=== PATIENT | male | born 1985 | race Hispanic/Latino ===

== ENCOUNTER 2018-12-27 19:57 | Emergency (ER) | payer MEDICAID ==
[~2018-12-27 19:57] MED LIST: SULF-168 PO
[2018-12-27] MEDS ORDERED: LIDOCAINE HCL 1% 20 ML VIAL ONE (21:10)
[2018-12-27] MEDS ORDERED: TETANUS/DIPHTHERIA TOXOID [ADULT] 0.5 ML VIAL IM ONE (21:10)
[2018-12-27] MEDS ORDERED: OCTYL 2-CYANOACRYLATE 1 EACH TP ONE (21:31)
== END 2018-12-27 21:50 | disposition home or self-care (01) ==
LOC: EDH 19:57
DX: S61.210A Laceration without foreign body of right index finger without damage to nail, initial encounter (principal); S61.212A Laceration without foreign body of right middle finger without damage to nail, initial encounter; I10 Essential (primary) hypertension; F41.9 Anxiety disorder, unspecified; Z72.0 Tobacco use; Z79.899 Other long term (current) drug therapy; W26.8XXA Contact with other sharp object(s), not elsewhere classified, initial encounter; Y93.89 Activity, other specified; Y92.89 Other specified places as the place of occurrence of the external cause; Y99.8 Other external cause status
CPT/HCPCS: 12042; 73130; 90471; 90714

== ENCOUNTER 2021-03-16 19:43 | Emergency (ER) | payer MEDICAID ==
[~2021-03-16] VITALS: Ht 167.6 cm; Wt 125.2 kg
[2021-03-16] MEDS ORDERED: IBUPROFEN 400 MG TABLET ONE (19:50)
[2021-03-16] MEDS ORDERED: HYDROCODONE/ACETAMINOPHEN 10/325 MG TAB PO ONE (21:30)
[2021-03-16] MEDS ORDERED: CEFAZOLIN SODIUM 1 GM VIAL IM SCH (22:00)
[2021-03-16] MEDS ORDERED: ACET1TAB25 PO (22:19)
[2021-03-16] MEDS ORDERED: IBUP-2070 PO (22:19)
[2021-03-16 22:34] VITALS: BP 135/69
[2021-03-16] MEDS ORDERED: [UNRECOGNIZED DRUG - CODE] MC (22:40)
[2021-03-22] MEDS ORDERED: CLIN-141 PO (13:58)
== END 2021-03-16 22:45 | disposition home or self-care (01) ==
LOC: EDH 19:43
DX: S90.01XA Contusion of right ankle, initial encounter (principal); S90.31XA Contusion of right foot, initial encounter; I10 Essential (primary) hypertension; Z79.1 Long term (current) use of non-steroidal anti-inflammatories (NSAID); X58.XXXA Exposure to other specified factors, initial encounter; Y93.89 Activity, other specified; Y92.89 Other specified places as the place of occurrence of the external cause; Y99.8 Other external cause status
CPT/HCPCS: 29515; 73610; 73630; 96372; 99284; J0690

== ENCOUNTER 2023-01-11 11:11 | Emergency (ER) | payer MEDICAID, OTHER ==
[~2023-01-11] VITALS: Ht 167.6 cm; Wt 125.6 kg
[~2023-01-11 11:11] MED LIST changes: +ACET-2079 PO; +CLIN-141 PO; +IBUP-2070 PO; +[UNRECOGNIZED DRUG - CODE] MC
[2023-01-11 11:24] VITALS: BP 156/98; PULSE 51; RESP 18; O2SAT 99
[2023-01-11] MEDS ORDERED: KETOROLAC 60 MG VIAL (30MG/ML) IM ONE (12:00)
[2023-01-11 12:14] LABS: BASOPHILS # (AUTO) 0.06 K/uL (0.00-0.20); BASOPHILS % (AUTO) 0.5 % (0.0-5.0); EOSINOPHILS # (AUTO) 0.53 K/uL (0.00-0.70); EOSINOPHILS % (AUTO) 4.8 % (0.0-8.0); HEMATOCRIT 47.3 % (42-54); IMMATURE GRANULOCYTE ABSOLUTE 0.02 K/uL (0-1); LYMPHOCYTES # (AUTO) 2.5 K/uL (1.0-4.8); LYMPHOCYTES % (AUTO) 22.1 % (21.0-51.0); MEAN CORPUSCULAR HEMOGLOBIN 30.4 pg (27.0-33.0); MEAN CORPUSCULAR HGB CONC 33.2 g/dL (32.0-36.0); MEAN CORPUSCULAR VOLUME 91.5 fL (79-99); MONOCYTES # (AUTO) 0.7 K/uL (0.1-1.0); NEUTROPHILS # (AUTO) 7.4 K/uL (1.8-7.7); NEUTROPHILS % (AUTO) 66.4 % (40.0-77.0); PLATELET COUNT (AUTO) 213 K/uL (130-400); RED BLOOD CELL COUNT(AUTO) 5.17 MIL/uL (4.50-6.20); RED CELL DISTRIBUTION WIDTH 13.4 % (11.0-15.5); WHITE BLOOD COUNT (AUTO) 11.1 K/uL (4.8-10.8)
[2023-01-11 12:17] LABS: POTASSIUM 3.9 mmol/L (3.5-5.1)
[2023-01-11 12:22] LABS: BILIRUBIN,TOTAL 0.4 mg/dL (0.2-1.0); TOTAL PROTEIN, SERUM 7.6 g/dL (6.0-8.3); URIC ACID 6.3 mg/dL (2.6-7.2)
[2023-01-11] MEDS ORDERED: CEPH500B PO (13:20)
[2023-01-11] MEDS ORDERED: CEFTRIAXONE 1G VIAL IM ONE (13:30)
== END 2023-01-11 13:53 | disposition home or self-care (01) ==
LOC: EDH 11:11
DX: L03.116 Cellulitis of left lower limb (principal); M79.672 Pain in left foot; F41.9 Anxiety disorder, unspecified; E11.9 Type 2 diabetes mellitus without complications; E78.00 Pure hypercholesterolemia, unspecified; I10 Essential (primary) hypertension
CPT/HCPCS: 99284; 84550; 80053; 85025; 85378; 85651; 36415; 73630; 96372 ×2; J0696; J1885

== ENCOUNTER → 2023-01-12 | Outpatient (CLI) | payer MEDICAID ==
[~2023-01-12] MED LIST changes: +CEPH500B PO
[2023-01-12 16:17] LABS: BASOPHILS # (AUTO) 0.06 K/uL (0.00-0.20); BASOPHILS % (AUTO) 0.5 % (0.0-5.0); EOSINOPHILS # (AUTO) 0.74 K/uL (0.00-0.70); EOSINOPHILS % (AUTO) 6.7 % (0.0-8.0); HEMATOCRIT 45.8 % (42-54); IMMATURE GRANULOCYTE ABSOLUTE 0.03 K/uL (0-1); LYMPHOCYTES # (AUTO) 2.8 K/uL (1.0-4.8); LYMPHOCYTES % (AUTO) 25.3 % (21.0-51.0); MEAN CORPUSCULAR HGB CONC 32.3 g/dL (32.0-36.0); MEAN CORPUSCULAR VOLUME 92.9 fL (79-99); MONOCYTES # (AUTO) 0.8 K/uL (0.1-1.0); NEUTROPHILS # (AUTO) 6.7 K/uL (1.8-7.7); NEUTROPHILS % (AUTO) 60.2 % (40.0-77.0); PLATELET COUNT (AUTO) 217 K/uL (130-400); RED BLOOD CELL COUNT(AUTO) 4.93 MIL/uL (4.50-6.20); RED CELL DISTRIBUTION WIDTH 13.4 % (11.0-15.5); WHITE BLOOD COUNT (AUTO) 11.1 K/uL (4.8-10.8)
[2023-01-12 16:54] LABS: ALBUMIN 3.7 g/dL (3.5-5.0); BILIRUBIN,TOTAL 0.3 mg/dL (0.2-1.0); POTASSIUM 3.5 mmol/L (3.5-5.1); T4 (THYROXINE) 8.2 ug/dL (4.7-13.3); THYROID STIMULATING HORMONE 2.54 uIU/mL (0.36-3.74); TOTAL PROTEIN, SERUM 7.2 g/dL (6.0-8.3)
== END | disposition home or self-care (01) ==
LOC: LAB 15:37
PROVIDERS: ATTEND Internal Medicine Cardiovascular Disease
DX: R00.1 Bradycardia, unspecified (principal); E78.5 Hyperlipidemia, unspecified
CPT/HCPCS: 36415; 80053; 80061; 84436; 84443; 85025

== ENCOUNTER 2023-08-25 02:57 | Emergency (ER) | payer MEDICAID, OTHER ==
[~2023-08-25] VITALS: Ht 167.6 cm; Wt 123.8 kg
[2023-08-25 03:26] LABS: BASOPHILS # (AUTO) 0.08 K/uL (0.00-0.20); BASOPHILS % (AUTO) 0.7 % (0.0-5.0); EOSINOPHILS # (AUTO) 0.49 K/uL (0.00-0.70); EOSINOPHILS % (AUTO) 4.2 % (0.0-8.0); HEMATOCRIT 44.7 % (42-54); IMMATURE GRANULOCYTE ABSOLUTE 0.04 K/uL (0-1); LYMPHOCYTES # (AUTO) 3.8 K/uL (1.0-4.8); LYMPHOCYTES % (AUTO) 32.8 % (21.0-51.0); MEAN CORPUSCULAR HEMOGLOBIN 31.4 pg (27.0-33.0); MEAN CORPUSCULAR HGB CONC 34.2 g/dL (32.0-36.0); MEAN CORPUSCULAR VOLUME 91.6 fL (79-99); MONOCYTES # (AUTO) 0.8 K/uL (0.1-1.0); MONOCYTES % (AUTO) 6.6 % (3.0-13.0); NEUTROPHILS # (AUTO) 6.5 K/uL (1.8-7.7); NEUTROPHILS % (AUTO) 55.4 % (40.0-77.0); PLATELET COUNT (AUTO) 186 K/uL (130-400); RED BLOOD CELL COUNT(AUTO) 4.88 MIL/uL (4.50-6.20); RED CELL DISTRIBUTION WIDTH 12.9 % (11.0-15.5); WHITE BLOOD COUNT (AUTO) 11.7 K/uL (4.8-10.8)
[2023-08-25 03:28] LABS: APPEARANCE,URINE CLEAR (CLEAR); BILIRUBIN,URINE NEGATIVE (NEGATIVE); COLOR,URINE COLORLESS (YELLOW); GLUCOSE, URINE (UA) NEGATIVE (NEGATIVE); KETONES,URINE NEGATIVE (NEGATIVE); LEUKOCYTE ESTERASE ,URINE NEGATIVE Leu/uL (NEGATIVE); NITRATE,URINE NEGATIVE (NEGATIVE); OCCULT BLOOD,URINE NEGATIVE (NEGATIVE); PH,URINE 6.5 (5.0-8.0); PROTEIN,URINE NEGATIVE (NEGATIVE); UROBILINOGEN,URINE 0.2 mg/dL (0.2-1.0)
[2023-08-25 03:33] LABS: ADD UA MICROSCOPIC NO
[2023-08-25] MEDS: NITROGLYCERIN 0.4 MG SL TAB SL PRN (03:34)
[2023-08-25] MEDS: HYDRALAZINE 20MG/ML VIAL IV ONE (03:35)
[2023-08-25 03:37] LABS: CREATININE 1.1 mg/dL (0.5-1.3); POTASSIUM 3.7 mmol/L (3.5-5.1)
[2023-08-25 03:40] LABS: INR 0.95 (0.85-1.15); PROTHROMBIN TIME 11.2 SEC (9.6-11.6)
[2023-08-25 03:41] LABS: PARTIAL THROMBOPLASTIN TIME 27.1 SEC (26.3-35.5)
[2023-08-25] MEDS: LORAZEPAM 2 MG/ML 1 ML VIAL IVP ONE (03:41)
[2023-08-25 03:42] LABS: ALBUMIN 3.9 g/dL (3.5-5.0); BILIRUBIN,TOTAL 0.3 mg/dL (0.2-1.0)
[2023-08-25 03:51] LABS: B-TYPE NATRIURETIC PEPTIDE < 5 pg/mL (0-100)
[2023-08-25] MEDS: CLONAZEPAM 1MG TAB PO ONE (03:57)
[2023-08-25] MEDS: CLONAZEPAM 1MG TAB ONE (03:59)
[2023-08-25 04:20] VITALS: BP 127/73; PULSE 49; RESP 13; O2SAT 98
[2023-08-25] MEDS: ACETAMINOPHEN 500 MG TABLET PO ONE (04:45)
== END 2023-08-25 04:49 | disposition home or self-care (01) ==
LOC: EDH 02:57
DX: R07.89 Other chest pain (principal); I10 Essential (primary) hypertension; Z79.899 Other long term (current) drug therapy; Z88.8 Allergy status to other drugs, medicaments and biological substances
CPT/HCPCS: 99285; 96374; 71045; 82550; 84484 ×2; 80053; 83880; 85025; 85610; 85730; 81003; 36415; 93005; J0360

== ENCOUNTER 2024-03-26 09:02 | Emergency (ER) | payer SELFPAY ==
[~2024-03-26] VITALS: Ht 165.1 cm; Wt 130.2 kg
[2024-03-26] MEDS: ORPHENADRINE 60MG/2ML IM ONE (10:10)
[2024-03-26] MEDS: ketOROlac 30MG VIAL (30MG/ML) IM ONE (10:11)
[2024-03-26] MEDS: morPHINE 4 MG SYG IM ONE ×2 (11:08→13:26)
--- NOTE | 2024-03-26 11:44 | ERN ---
ED Note History of Present Illness Stated Complaint: BACK PAIN Chief Complaint: Back Pain or Injury Time Seen by MD: 09:12 Dictation: Patient is a 39-year-old male with a past medical history of hypertension presents to the ED for lower back pain that began yesterday. Patient states he was sitting at the dining table when the pain started and since then the pain has worsened. Pain is exacerbated by sitting up and walking. Due to pain patient is unable to ambulate on his own. Patient states he has had pain like this in the past with the last episode 1 month ago. Patient denies any chest pain, shortness of breath, fevers, chills, or recent injuries. Patient does not take any medication to help with the pain but admits to marijuana use. Allergies: Coded Allergies: hydroxyzine (Unverified Allergy, Severe, SWELLING, 06/15/14) Got exacerbation of itching and exacerbation of rash as well. Uncoded Allergies: ADHESIVE TAPE (Allergy, Intermediate, RASH, 06/15/14) HE ALSO GETS REDNESS AND BLISTERS. Home Meds Active Scripts Cephalexin Monohydrate (Keflex) 500 Mg Cap, 500 MG PO QID for 7 Days, #28 CAP 0 Refills Prov:DIONISIO PENALOZA 01/11/23 Clindamycin HCl (Clindamycin HCl) 300 Mg Capsule, 1 CAP PO QID for 10 Days, #40 CAP 0 Refills Prov:CIERRA URBINA NP 03/22/21 Miscellaneous Medical Supply (Crutch Accessory Kit) 1 Each Kit, EACH MC DAILY for ankle contusion, #1 Prov:CIERRA URBINA NP 03/16/21 Acetaminophen with Codeine (Acetaminophen-Cod #3 Tablet) 1 Each Tablet, 1 EACH PO BID for 5 Days, #15 TAB Prov:CIERRA URBINA NP 03/16/21 Ibuprofen (Ibuprofen) 600 Mg Tablet, 600 MG PO Q6H PRN for PAIN for 5 Days, #15 TAB Prov:CIERRA URBINA NP 03/16/21 Sulfamethoxazole/Trimethoprim (Bactrim Ds/Septra Ds) 1 Tab Tablet, 1 TAB PO BID, #14 TAB Prov:SCOTT MARTINEZ MD 06/15/14 Past Medical History Past Medical History: Hypertension Surgical History: Unknown Review of System Dictation Constitutional-no chills, weight loss/gain, fever Eyes-no injury, pain, redness and discharge ENT-no injury, pain, swelling Cardiovascular no chest pain, palpitations, edema Respiratory no shortness of breath, cough, wheezing Abdomen/GI-no abdominal pain, diarrhea, constipation, vomiting, nausea Back no injury and pain Genitourinary no injury, bleeding and discharge Musculoskeletal/extremities no injury, deformity Skin no rash, discoloration Neuro-no headache, weakness, numbness, tingling, seizures, tremors Psych-no suicidal ideation, homicidal ideation, hallucinations, depression, anxiety, memory loss Initial Vital Sign VS Vital Signs Date Time Temp Pulse Resp B/P (MAP) Pulse Ox O2 Delivery O2 Flow Rate FiO2 03/26/24 09:03 97.9 60 20 161/80 98 Room Air 0 03/26/24 09:20 21 Physical Exam Dictation VITAL SIGNS: Reviewed. GENERAL APPEARANCE: Alert, oriented x3, no acute distress, obese. HEAD AND FACE: Non-traumatic. EYES: PERRL, pink conjunctivas, eyelid no trauma, anterior chamber clear. EARS: Pinnas intact and no signs of trauma or erythema. Ear canals clear and no discharge. TMs no erythema. NOSE: No discharge, no bleeding. OROPHARYNX: Mouth normal, teeth no caries, tongue pink. Pharynx clear, no erythema. Tonsils no exudates, no abscesses noted. Mucous membrane moist. NECK: Supple, non-tender, no thyromegaly, no masses, no JVD, no bruits. BREAST: Deferred. CHEST: No tenderness, no crepitus, no paradoxical movement, no retractions. LUNGS: Clear, well-ventilated, symmetric, no rales, no wheezing, no rhonchi, no stridor, good breath sounds bilaterally. HEART: Regular rate, regular rhythm, no murmur, no gallops. VASCULAR: No peripheral edema. ABDOMEN: Soft, positive bowel sounds, nondistended, no guarding, nontender, no rebound, no masses no hepatomegaly, no splenomegaly, no Odell's sign, no hernias. RECTAL: Swelling, lesion, possible pilonidal cyst GENITAL: Deferred. NEUROLOGICAL: Normal speech, gross motor function intact, gross sensory function intact. MUSCULOSKELETAL: Neck nontender, full range of motion, back nontender. Range of motion limited due to back pain illicit on sitting up and standing. Positive straight leg test bilaterally. EXTREMITIES: Nontender, full range of motion. SKIN: Color pink, dry, no turgor, no rash, no lacerations, no abrasions, no contusions. LYMPHATICS: Deferred. ED Course ED Course Orders Procedure Category Date Status Time Ketorolac PHA 03/26/24 Complete Tromethamine 30mg/Ml 10:00 Orphenadrine Citrate PHA 03/26/24 Complete (Norflex) 10:00 Morphine 4mg Syg PHA 03/26/24 Complete (Morphine 4mg Syg) 11:30 Morphine 4mg Syg PHA 03/26/24 Complete (Morphine 4mg Syg) 13:00 Methylprednisolone PHA 03/26/24 Complete Succ 40mg (Solu-Medro 14:00 Current Medications Medications (Trade) Dose Ordered Sig/Lianne Route PRN Reason Start Time Stop Time Status Last Admin Dose Admin Ketorolac Tromethamine (toRADol) 60 mg ONCE ONCE IM 03/26/24 10:00 03/26/24 10:01 DC 03/26/24 10:11 Methylprednisolone Sodium Succinate (Solu-medROL 40MG) 80 mg ONCE ONCE IM 03/26/24 14:00 03/26/24 14:01 DC 03/26/24 14:10 Morphine Sulfate (morPHINE 4MG SYG) 4 mg ONCE ONCE IM 03/26/24 11:30 03/26/24 11:31 DC 03/26/24 11:08 Morphine Sulfate (morPHINE 4MG SYG) 4 mg ONCE ONCE IM 03/26/24 13:00 03/26/24 13:01 DC 03/26/24 13:26 Orphenadrine Citrate (Norflex) 60 mg ONCE ONCE IM 03/26/24 10:00 03/26/24 10:01 DC 03/26/24 10:10 Vital Signs Date Time Temp Pulse Resp B/P (MAP) Pulse Ox O2 Delivery O2 Flow Rate FiO2 03/26/24 14:23 97.9 47 16 120/75 98 Room Air* 0 21 03/26/24 09:20 47 16 126/75 100 Room Air* 0 21 03/26/24 09:03 97.9 60 20 161/80 98 Room Air 0 Medical Decision Making MDM MDM INITIAL IMPRESSION Initial history and physical concerning for new onset of lower back pain Contributing medical problems: I have reviewed the triage nursing notes and vital signs. Initial plan: Physical exam DATA REVIEW I have reviewed additional NN, repeat VS, and monitoring where indicated. Heart rate, blood pressure, and O2 saturation are acceptable. [place] diagnostic results: Other independent historian: Review of external data: ED COURSE Interventions: Pain management Reassessment: DISPOSITION Final diagnostic impression: I discussed my findings, clinical impression and treatment recommendations with the patient. My final plan for disposition was made based upon -mild risk of complications and potential morbidity of the patient's condition. -Discussion with the patient regarding management options. -Discussed the case and developed a plan of care as documented with attending Dr. Shane Germain. [diposition] DX & DISP Disposition: Discharge Decision to Admit Date: Mar 26, 2024 Decision to Admit Time: 14:33 Departure Impression: Primary Impression: Lower back pain Condition: Stable Scripts Ibuprofen (Ibuprofen 800 mg Tab) 800 Mg Tab 1 TAB PO TID for pain for 30 Days, #90 TAB 0 Refills Prov: SHANE GERMAIN MD 03/26/24 Acetaminophen with Codeine (Acetaminophen-Cod #3 Tablet) 300 Mg-30 Mg Tablet 1-2 TAB PO Q4H PRN for PAIN LEVEL 2 TO 5, #20 TAB 0 Refills Prov: SHANE EGRMAIN MD 03/26/24 Additional Instructions: Take steroids as prescribed manage pain with Tylenol as prescribed apply heat for 20 minutes at a time, several times a day, or use ice packs for 10-20 minutes, urinating as needed. Avoid prolonged bedrest and for gentle movement to prevent muscle stiffness and promote healing. When lying down, consider lying on your side with a pillow between her knees or on your back with a pillow under her knees and behind her head. When sitting, uses chair with good back support and keep your feet flat on the floor. Engage in gentle exercises like walking to improve flexibility and strength and back muscles. Consider physical therapy to strengthen muscles, improve posture, and enhance mobility. FOLLOW-UP WITH PRIMARY CARE PROVIDER IN 1 TO 2 DAYS. TAKE MEDICATIONS DIRECTED HERE IN THE EMERGENCY ROOM. OKAY TO CONTINUE HOME MEDICATIONS UNLESS OTHERWISE DISCUSSED DURING YOUR VISIT IN THE EMERGENCY ROOM TODAY. RETURN TO YOUR NEAREST EMERGENCY ROOM IF SYMPTOMS WORSEN OR IF THERE IS NO IMPROVEMENT. CALL 911 IF YOU NEED IMMEDIATE ASSISTANCE. TAKE TYLENOL [id number] NEEDED AND IF NO CONTRAINDICATIONS ARE PRESENT. INCREASE ORAL HYDRATION. A WOUND CULTURE OR URINE CULTURE WAS ORDERED HERE IN THE EMERGENCY ROOM DEPARTMENT PLEASE FOLLOW-UP WITH PRIMARY CARE PROVIDER AND ADVISE THEM TO GET REPEAT PORTS FROM OUR FACILITY. IF YOU HAD ANY AMY WRAP/SPLINTS THAT WERE APPLIED HERE, PLEASE DO NOT REMOVE THEM UNTIL YOU SEE YOUR PRIMARY CARE OR SPECIALTY. Referrals: POP WICK MD (PCP) Time of Disposition: 14:33 I interviewed this patient and re-evaluated him with the manager medical writing, . He has no red flag history or findings to suggest need for emergent imaging. He has had poor response to pain medication but currently is improved over his baseline. He will be prescribed a small amount of Tylenol codeine. I did check a [employer]BASS[employer]OR aware and determined that the patient has had no narcotic prescription in two years. He already has prednisone at the pharmacy. He is strongly encouraged to follow up soon with his primary care physician LEEANN CHEN MD Mar 26, 2024 11:44 SHANE GERMAIN MD Mar 26, 2024 14:33
[2024-03-26] MEDS: Solu-medROL 40MG VIAL IM ONE (14:10)
[2024-03-26 14:23] VITALS: BP 120/75; PULSE 47; RESP 16; TEMP 97.9; O2SAT 98
[2024-03-26] MEDS ORDERED: ACET-2079 PO (14:29)
[2024-03-26] MEDS ORDERED: IBUP-2077 PO (14:29)
== END 2024-03-26 14:45 | disposition home or self-care (01) ==
LOC: EDH 09:02
DX: M54.50 Low back pain, unspecified (principal); I10 Essential (primary) hypertension; Z88.8 Allergy status to other drugs, medicaments and biological substances
CPT/HCPCS: 99284; 96372 ×5; J2919; J2270 ×2; J1885; J2360

== ENCOUNTER 2024-12-06 01:38 | Emergency (ER) | payer SELFPAY ==
[~2024-12-06] VITALS: Ht 167.6 cm; Wt 127.0 kg
[~2024-12-06 01:38] MED LIST changes: +IBUP-1492 PO; -IBUP-2070 PO; +IBUP-2077 PO
--- NOTE | 2024-12-06 01:42 | NUR ---
ICE PACK WITH BARRIER PROVIDED
--- NOTE | 2024-12-06 02:04 | ERN ---
General Chief Complaint: Hand Problem/Injury Stated Complaint: RT HAND INJURY Time Seen by MD: 01:54 Source: patient History of Present Illness Initial Comments 39-year-old male was wrestling with his friends approximately three hours ago when he injured his hand. Afterwards he started noticing increased swelling and redness mostly in the 1st webspace and the index TMA joint. He is having increasing difficulty opening and closing his right hand. He comes to the emergency room for evaluation. There is good capillary refill in all of the digits there is sensation in all the digits. Timing/Duration: 1-3 hours Severity: mild Allergies: Coded Allergies: hydroxyzine (Unverified Allergy, Severe, SWELLING, 06/15/14) Got exacerbation of itching and exacerbation of rash as well. Uncoded Allergies: ADHESIVE TAPE (Allergy, Intermediate, RASH, 06/15/14) HE ALSO GETS REDNESS AND BLISTERS. Home Meds Active Scripts Ibuprofen (Ibuprofen 800 mg Tab) 800 Mg Tab, 1 TAB PO TID for pain for 30 Days, #90 TAB 0 Refills Prov:SHANE GERMAIN MD 03/26/24 Acetaminophen with Codeine (Acetaminophen-Cod #3 Tablet) 300 Mg-30 Mg Tablet, 1- 2 TAB PO Q4H PRN for PAIN LEVEL 2 TO 5, #20 TAB 0 Refills Prov:SHANE GERMAIN MD 03/26/24 Cephalexin Monohydrate (Keflex) 500 Mg Cap, 500 MG PO QID for 7 Days, #28 CAP 0 Refills Prov:DIONISIO PENALOZA [facility] 01/11/23 Clindamycin HCl (Clindamycin HCl) 300 Mg Capsule, 1 CAP PO QID for 10 Days, #40 CAP 0 Refills Prov:CIERRA URBINA NP 03/22/21 Miscellaneous Medical Supply (Crutch Accessory Kit) 1 Each Kit, EACH MC DAILY for ankle contusion, #1 Prov:CIERRA URBINA NP 03/16/21 Acetaminophen with Codeine (Acetaminophen-Cod #3 Tablet) 1 Each Tablet, 1 EACH PO BID for 5 Days, #15 TAB Prov:CIERRA URBINA NP 03/16/21 Ibuprofen (Ibuprofen) 600 Mg Tablet, 600 MG PO Q6H PRN for PAIN for 5 Days, #15 TAB Prov:CIERRA URBINA NP 03/16/21 Sulfamethoxazole/Trimethoprim (Bactrim Ds/Septra Ds) 1 Tab Tablet, 1 TAB PO BID, #14 TAB Prov:SCOTT MARTINEZ MD 06/15/14 Past Medical History Past Medical History: Hypertension Past Surgical History: Other Surgical History Other: RT KNEE ROS Dictation Review of systems is otherwise negative. Physical Exam Extremities Comment Patient's right hand thenar eminence thumb index finger middle finger and the dorsal surface of his right hand in those areas is swollen and red and tender. He does have good sensation throughout. MDM Plain films have been ordered. Differential diagnosis includes fracture but could also be a soft tissue injury of some kind. And has a minimally displaced distal metacarpal fracture of his index finger. ED Course Orders Procedure Category Date Status Time Hand 3+Vws Rt RAD 12/06/24 Taken 01:50 Vital Signs Date Time Temp Pulse Resp B/P (MAP) Pulse Ox O2 Delivery O2 Flow Rate FiO2 12/06/24 01:40 98.1 75 16 137/87 98 Room Air DX & DISP Disposition: Discharge Departure Impression: Primary Impression: Fracture, metacarpal, neck Condition: Stable Scripts Ketorolac Tromethamine (Toradol) 10 Mg Tab 1 TAB PO Q6HPRN PRN for pain for 5 Days, #20 TAB 0 Refills Prov: BRYANT PRADHAN MD 12/06/24 Additional Instructions: You have a fracture in the metacarpal bone of the index finger. You need to see a hand surgeon tomorrow. I have provided the phone number and the address for Dr. Encarnacion please see him in the morning. I have written a prescription for pain medications. Please come back to the emergency room if the circulation to your index finger middle finger and thumb become compromise to where they start hurting or turn blue. Otherwise follow-up with Dr. Encarnacion in the morning. Referrals: POP WICK MD (PCP) EMIGDIO ENCARNACION MD, GORDON K MD Dec 06, 2024 02:04
--- NOTE | 2024-12-06 02:05 | NUR ---
PT WITH RADIOLOGY
[2024-12-06] MEDS ORDERED: KETO10 PO (02:22)
[2024-12-06 03:14] VITALS: BP 145/65; PULSE 85; RESP 18; TEMP 98.8; O2SAT 99
--- NOTE | 2024-12-06 03:15 | HMCIMG ---
EXAM: CR Right Hand, 3 views. CLINICAL HISTORY: Injury. COMPARISON: Radiograph of the right hand dated 12/27/2018. FINDINGS: Minimally displaced comminuted acute fracture of the head and neck of the second metacarpal with articular surface extension. Diffuse soft tissue swelling is evident. The remaining bones and joints are within normal limits. IMPRESSION: Minimally displaced comminuted acute fracture of the head and neck of the second metacarpal with articular surface extension. Diffuse soft tissue swelling is evident. The findings are new compared to the previous radiograph. /[place]
== END 2024-12-06 03:15 | disposition home or self-care (01) ==
LOC: EDH 01:38
DX: S62.330A Displaced fracture of neck of second metacarpal bone, right hand, initial encounter for closed fracture (principal); I10 Essential (primary) hypertension; Z79.1 Long term (current) use of non-steroidal anti-inflammatories (NSAID); Z79.891 Long term (current) use of opiate analgesic; Z91.048 Other nonmedicinal substance allergy status; X58.XXXA Exposure to other specified factors, initial encounter; Y93.72 Activity, wrestling; Y92.89 Other specified places as the place of occurrence of the external cause; Y99.8 Other external cause status
CPT/HCPCS: 73130; 99283